=== PATIENT | female | born 1985 | race Two or more races ===

== ENCOUNTER 2022-06-12 02:51 | Inpatient (IN) | payer OTHER ==
[~2022-06-12] VITALS: Ht 162.6 cm; Wt 61.2 kg
[2022-06-12] MEDS ORDERED: PRENATAL TABLE1 EAC1 PO (04:53)
== END 2022-06-13 09:54 | disposition home or self-care (01) | DRG 833 ==
LOC: LDR 02:51
PROVIDERS: ADMIT Obstetrics & Gynecology Gynecology; ATTEND Obstetrics & Gynecology Gynecology
PROC: 4A1HXCZ Monitoring of Products of Conception, Cardiac Rate, External Approach (ICD-10-PCS; principal; 2022-06-12)
PROC: BY4FZZZ Ultrasonography of Third Trimester, Single Fetus (ICD-10-PCS; 2022-06-12)
PROC: B24DZZZ Ultrasonography of Pediatric Heart (ICD-10-PCS; 2022-06-12)
PROC: BW40ZZZ Ultrasonography of Abdomen (ICD-10-PCS; 2022-06-12)
PROC: BT43ZZZ Ultrasonography of Bilateral Kidneys (ICD-10-PCS; 2022-06-12)
DX: O60.03 Preterm labor without delivery, third trimester (principal); O26.843 Uterine size-date discrepancy, third trimester; Z3A.32 32 weeks gestation of pregnancy; Z20.822 Contact with and (suspected) exposure to COVID-19

== ENCOUNTER 2022-07-25 11:36 | Inpatient (IN) | payer OTHER ==
[~2022-07-25] VITALS: Ht 162.6 cm; Wt 3.6 kg
[~2022-07-25 11:36] MED LIST: PRENATAL TABLE1 EAC1 PO
[2022-08-02] MEDS ORDERED: KETO10TA2 PO (10:06)
[2022-08-02] MEDS ORDERED: OXYC1TAB9 PO (10:06)
== END 2022-08-02 12:17 | disposition home or self-care (01) | DRG 788 ==
LOC: LDR 07-29 13:15 → O/R 07-30 10:00 → OB/GYN 07-30 10:00
PROVIDERS: ADMIT Obstetrics & Gynecology; ATTEND Obstetrics & Gynecology
PROC: 4A1HXCZ Monitoring of Products of Conception, Cardiac Rate, External Approach (ICD-10-PCS; 2022-07-30)
PROC: 10D00Z1 Extraction of Products of Conception, Low, Open Approach (ICD-10-PCS; principal; 2022-07-30 15:30)
DX: O34.211 Maternal care for low transverse scar from previous cesarean delivery (principal); O99.824 Streptococcus B carrier state complicating childbirth; Z3A.39 39 weeks gestation of pregnancy; Z37.0 Single live birth; Z20.822 Contact with and (suspected) exposure to COVID-19